=== PATIENT | female | born 2000 | race Caucasian/White ===

== ENCOUNTER 2019-01-28 09:59 | Emergency (ER) | payer BC ==
[~2019-01-28] VITALS: Ht 172.7 cm; Wt 59.0 kg
[2019-01-28 10:00] VITALS: BP_SYST 137
--- NOTE | 2019-01-28 10:00 | NUR ---
BROUGHT BACK TO BED #8 AND TRIAGED. REPORT GIVEN TO CALIN
--- NOTE | 2019-01-28 10:06 | NUR ---
Patient is awake, alert, and oriented x4. Patient reports she woke up, yawned, and her jaw popped out. Patient presents with pain to jaw and she is unable to close it.
--- NOTE | 2019-01-28 10:07 | NUR ---
RAJ Matthews at bedside examining patient.
--- NOTE | 2019-01-28 10:10 | NUR ---
Dr. Matthews in to perform reduction.
[2019-01-28] MEDS ORDERED: IBUPROFEN 600 MG TABLET PO ONE (10:15)
[2019-01-28 10:25] VITALS: BP_SYST 137
--- NOTE | 2019-01-28 10:25 | NUR ---
Patient given written and verbal discharge instructions and verbalizes understanding. ER MD discussed with patient the results and treatment provided. Patient in stable condition. ID arm band removed. Rx of ibuprofen given. Patient educated on pain management and to follow up with PMD. Pain Scale 3/10. Opportunity for questions provided and answered. Medication side effect fact sheet provided.
== END 2019-01-28 10:25 | disposition home or self-care (01) ==
LOC: SED 09:59
DX: S03.01XA Dislocation of jaw, right side, initial encounter (principal); X50.9XXA Other and unspecified overexertion or strenuous movements or postures, initial encounter; Y93.89 Activity, other specified; Y92.89 Other specified places as the place of occurrence of the external cause; Y99.8 Other external cause status
CPT/HCPCS: 99284

== ENCOUNTER 2021-10-14 13:18 | Emergency (ER) | payer BC ==
[~2021-10-14] VITALS: Ht 172.7 cm; Wt 52.2 kg
[2021-10-14 13:45] VITALS: BP_SYST 115
[2021-10-14] MEDS ORDERED: LIDOCAINE 1% 10 MG/ML, 20 ML MDV INJ ONE (13:45)
--- NOTE | 2021-10-14 15:28 | NUR ---
Patient to ER bed 8 to gown for evaluation. Side rails up. Report given to JESSI Mari
--- NOTE | 2021-10-14 15:30 | NUR ---
Patient brought in complaining of laceration to chin. Patient reports that she was getting out of the shower and got dizzy and hit her chin on an object. Denies any LOC, WEISS, Nausea, vomiting, blurry vision, numbness tingling, weakness, any other injury or trauma. Pain 2/10
--- NOTE | 2021-10-14 15:35 | NUR ---
ER at bedside examining patient.
--- NOTE | 2021-10-14 15:38 | NUR ---
Patient has a 1 INCH laceration to chin. Dr. White applied sutures using sterile technique. Edges well approximated. Site cleansed with normal saline and betadine. No bleeding noted. Pt tolerated well.
[2021-10-14 16:39] VITALS: BP_SYST 134
--- NOTE | 2021-10-14 16:41 | NUR ---
Patient given written and verbal discharge instructions and verbalizes understanding. ER MD discussed with patient the results and treatment provided. Patient in stable condition. ID arm band removed. Patient educated on pain management and to follow up with PMD. Pain Scale 0/10. Opportunity for questions provided and answered. Medication side effect fact sheet provided.
== END 2021-10-14 16:39 | disposition home or self-care (01) ==
LOC: SED 13:18
DX: S01.81XA Laceration without foreign body of other part of head, initial encounter (principal); W01.0XXA Fall on same level from slipping, tripping and stumbling without subsequent striking against object, initial encounter; Y93.89 Activity, other specified; Y92.89 Other specified places as the place of occurrence of the external cause; Y99.8 Other external cause status
CPT/HCPCS: 99282; 12011; J2001

== ENCOUNTER 2023-08-26 21:00 | Emergency (ER) | payer BC ==
[~2023-08-26] VITALS: Ht 172.7 cm; Wt 59.0 kg
[2023-08-26 21:05] VITALS: BP_SYST 128; PULSE 71; RESP 20; TEMP 98.5; O2SAT 98
[2023-08-26] MEDS ORDERED: MORPHINE 4 MG INJ. 4 MG/ML VIAL IM ONE (22:30)
== END 2023-08-26 22:37 | disposition home or self-care (01) ==
LOC: SED 21:00
DX: S03.01XA Dislocation of jaw, right side, initial encounter (principal); X58.XXXA Exposure to other specified factors, initial encounter; Y93.89 Activity, other specified; Y92.89 Other specified places as the place of occurrence of the external cause; Y99.8 Other external cause status
CPT/HCPCS: 99284